=== PATIENT | female | born 1975 | race Caucasian/White ===

== ENCOUNTER 2018-06-30 00:30 | Outpatient (CLI) | payer OTHER, SELFPAY ==
--- NOTE | 2018-06-30 10:47 | DI.RAD_ITS ---
SYMPTOMS/DIAGNOSIS: LOW BACK PAIN CHRONIC, NECK PAIN, M54.2, M54.5 LUMBAR SPINE: AP, lateral and bilateral oblique views. There are five lumbar type vertebral bodies. No spondylolysis or spondylolisthesis is seen. There are a few small endplate osteophytes at the L 3 - 4 and L 4 - 5 disc levels. The vertebral bodies, disc spaces and posterior elements are intact. The bones are normally mineralized. There are mild degenerative changes of the facet joints at L 5 - S 1. IMPRESSION: Mild degenerative changes in the lumbar spine. SACRUM AND COCCYX: Two views. No bone or joint abnormality is identified. IMPRESSION: Negative examination. THORACIC SPINE: Frontal and lateral views. There is normal alignment of the thoracic spine. There is mild disc space narrowing and small osteophytes seen at multiple mid thoracic spine levels. No acute fractures of subluxations are seen. The paraspinal lines are intact. IMPRESSION: Mild degenerative changes seen in the mid thoracic spine. CERVICAL SPINE: Odontoid, AP, lateral and bilateral oblique views. The odontoid is intact. The lateral masses appear well aligned. There is straightening of the normal cervical lordosis. This may be due to muscle spasm or patient positioning. The vertebral bodies, disc spaces and posterior elements are all well maintained. No neural foraminal encroachment is seen. No acute fracture or subluxation is present. The prevertebral soft tissues are unremarkable. IMPRESSION: Unremarkable cervical spine examination.
== END 2018-06-30 00:50 ==
PROVIDERS: PCP Nurse Practitioner Family; Visit Provider Nurse Practitioner Family
DX: M54.5 Low back pain (principal); M54.2 Cervicalgia; M54.6 Pain in thoracic spine; M47.817 Spondylosis without myelopathy or radiculopathy, lumbosacral region; M47.814 Spondylosis without myelopathy or radiculopathy, thoracic region; M53.3 Sacrococcygeal disorders, not elsewhere classified
CPT/HCPCS: 72050; 72072; 72110; 72220

== ENCOUNTER 2018-07-13 00:22 | Outpatient (CLI) | payer OTHER, SELFPAY ==
--- NOTE | 2018-07-13 13:09 | DI.US_ITS ---
SYMPTOMS/DIAGNOSIS: LOW BACK PAIN, MENORRHAGIA, N92.0 PELVIC ULTRASOUND: Transabdominal and transvaginal exams were performed. Both the transabdominal and transvaginal exams are limited by patient body habitus. The uterus and ovaries were not well seen transvaginally. The uterus measures 9.8 x 3.5 x 4.9 cm. There is a 1.7 cm anterior myometrial fibroid. The endometrial stripe appears normal at 4 mm in thickness. The ovaries are normal in size. No cyst or mass is identified. There is no evidence of free fluid or hydronephrosis. IMPRESSION: Small uterine fibroid. Limited exam due to patient body habitus.
== END 2018-07-13 00:42 ==
PROVIDERS: PCP Nurse Practitioner Family; Visit Provider Nurse Practitioner Family
DX: N92.0 Excessive and frequent menstruation with regular cycle (principal); M54.5 Low back pain; D25.9 Leiomyoma of uterus, unspecified
CPT/HCPCS: 76830; 76856

== ENCOUNTER 2019-06-03 10:36 | Outpatient (REF) | payer OTHER, SELFPAY ==
[2019-06-03 13:12] LABS: Absolute Basophil Count 0.02 k/cumm (0.0-0.2); Absolute Eosinophil Count 0.11 k/cumm (0.0-0.7); Absolute Lymphocyte Count 1.89 k/cumm (1.2-3.4); Absolute Neutrophil Count 5.13 k/cumm (1.2-6.7); Basophils % 0.3; Eosinophils % 1.4; HGB 13.7 g/dL (12.0-15.5); Immature Grans % 1.3 %; Lymphocytes % 24.4; Mean Corp. HGB Concentration 34.3 g/dL (32.0-36.0); Mean Corpuscular Hemoglobin 31.8 pg (27.0-33.0); Mean Corpuscular Volume 92.8 fL (80-95); Mean Platelet Volume 11.2 fL (8.0-11.0); Monocytes % 6.5; Neutrophils % 66.1; Platelet Count 211 x1000/uL (130-400); RBC 4.31 m/cumm (4.00-5.20); RBC Distribution Width 13.4 % (11.7-14.6); White Blood Cell Count 7.75 k/cumm (4.4-10.8)
[2019-06-03 13:30] LABS: ALT 32 U/L (14-59); AST 21 U/L (15-37); Albumin 3.8 g/dL (3.4-5.0); Alkaline Phosphatase 83 U/L (46-116); Anion Gap 6.8 mmol/L (3-11); BUN 8 mg/dL (7-18); Bilirubin, Total 0.5 mg/dL (0.2-1.0); CO2 29.2 mmol/L (21.0-32.0); CREATININE 0.94 mg/dL (0.55-1.02); Calcium 8.5 mg/dL (8.5-10.1); Chloride 103 mmol/L (98-107); Glucose 86 mg/dL (74-106); Potassium 4.3 mmol/L (3.5-5.1); Sodium 139 mmol/L (136-145); TSH (W/Ref FT4) 7.14 uIU/mL (0.36-3.74); Total Protein 6.8 g/dL (6.4-8.2)
[2019-06-03 13:42] LABS: Calculated LDL 169 mg/dL (<100); Cholesterol 253 mg/dL (<200); HDL Cholesterol 41 mg/dL (40-60); Triglyceride 218 mg/dL (<150)
[2019-06-03 14:00] LABS: FREE T4 0.83 ng/dL (0.76-1.46)
[2019-06-03 14:04] LABS: COMMENT (LAB VIEW ONLY) 205.35 mg/dL; PROTEIN 15.9 mg/dL; Prot/Crea Ur Ratio 0.07
[2019-06-03 14:06] LABS: COMMENT (LAB VIEW ONLY) 207.23 mg/dL; Microalb ug/mg Crea 22.5 ug/mg Cr
== END 2019-06-03 10:56 ==
LOC: NCHCN 10:36
PROVIDERS: PCP Nurse Practitioner Family; Visit Provider Nurse Practitioner Family
DX: Z00.00 Encounter for general adult medical examination without abnormal findings (principal); Z13.220 Encounter for screening for lipoid disorders; Z13.228 Encounter for screening for other metabolic disorders; R53.83 Other fatigue; I10 Essential (primary) hypertension
CPT/HCPCS: 80053; 80061; 82043; 82565; 82570; 84156; 84439; 84443; 85025

== ENCOUNTER 2019-07-13 15:48 | Outpatient (CLI) | payer OTHER, SELFPAY ==
[2019-07-15 12:16] LABS: COVID-19 RT-PCR Result Not Detected
== END 2019-07-13 16:08 ==
PROVIDERS: PCP Nurse Practitioner Family; Visit Provider Nurse Practitioner Family
DX: Z20.828 Contact with and (suspected) exposure to other viral communicable diseases (principal)
CPT/HCPCS: U0003

== ENCOUNTER 2020-03-12 19:09 | Outpatient (REF) | payer OTHER, SELFPAY ==
[2020-03-12 19:26] LABS: Anion Gap 7.6 mmol/L (3-11); BUN 11 mg/dL (7-18); CO2 27.4 mmol/L (21.0-32.0); CREATININE 0.93 mg/dL (0.55-1.02); Calcium 8.9 mg/dL (8.5-10.1); Chloride 102 mmol/L (98-107); Glucose 87 mg/dL (74-106); NT-proBNP 32 pg/mL (<300); Potassium 3.8 mmol/L (3.5-5.1); Sodium 137 mmol/L (136-145); TSH (W/Ref FT4) 3.21 uIU/mL (0.36-3.74)
[2020-03-13 16:59] LABS: T3, Total 119 ng/dL (97-169)
[2020-03-13 18:32] LABS: Thyroglobulin Antibody <15 U/mL (<=60); Thyroperoxidase Antibody 38 U/mL (<=60)
== END 2020-03-12 19:29 ==
LOC: NCHCN 19:09
PROVIDERS: PCP Nurse Practitioner Family; Visit Provider Family Medicine
DX: I10 Essential (primary) hypertension (principal); E03.9 Hypothyroidism, unspecified; R60.0 Localized edema
CPT/HCPCS: 80048; 83880; 84443; 84480; 86376; 86800

== ENCOUNTER 2020-10-30 13:51 | Outpatient (REF) | payer OTHER, SELFPAY ==
[2020-10-30 14:14] LABS: Anion Gap 6.8 mmol/L (3-11); BUN 9 mg/dL (7-18); CO2 29.2 mmol/L (21.0-32.0); Calcium 8.8 mg/dL (8.5-10.1); Chloride 105 mmol/L (98-107); Glucose 81 mg/dL (74-106); Potassium 4.6 mmol/L (3.5-5.1); Sodium 141 mmol/L (136-145)
== END 2020-10-30 13:52 | disposition home or self-care (01) ==
LOC: NCHCN 13:51
PROVIDERS: PCP Nurse Practitioner Family; Visit Provider Nurse Practitioner Family
DX: I10 Essential (primary) hypertension (principal)
CPT/HCPCS: 80048

== ENCOUNTER 2021-03-05 15:31 | Outpatient (REF) | payer OTHER, SELFPAY ==
--- NOTE | 2021-03-05 13:45 | PAPFT_PTH ---
PATIENT: Orly Valencia LOC: [facility]#:[id number] AGE/SX: 45/F ROOM: RE03/05/[address]: Lurdes Luna : 1975 BED: DIS: 03/05/2021 SPEC #: [id number] RECD: 03/06/21 13:14 STATUS: BREEZY REQ #: [id number] RUSLAN: 03/05/21 13:[address]: Lurdes Luna DEPT: [facility] Cytology RECD BY: Tessy Braga ENTERED: 03/06/21 13:15 SP TYPE: PAPFT OTHR DR: Waqar Riley Tissues: 1 - CX/ENDOCX FOR PAP SMEARS Procedures: PAP THIN PREP/UVM Screening HPV DNA PROBE Comments: [id number]
== END 2021-03-05 15:32 | disposition home or self-care (01) ==
LOC: NCHCN 15:31
PROVIDERS: PCP Nurse Practitioner Family; Visit Provider Nurse Practitioner Family
DX: Z12.4 Encounter for screening for malignant neoplasm of cervix (principal); Z11.51 Encounter for screening for human papillomavirus (HPV)
CPT/HCPCS: 88142; 87624

== ENCOUNTER 2021-04-02 01:43 | Outpatient (CLI) | payer OTHER, SELFPAY ==
[2021-04-02 12:31] VITALS: BP 139/97; PULSE 104; RESP 18; TEMP 36.4; O2SAT 100
[2021-04-02 12:58] VITALS: BP 144/98; PULSE 103; RESP 18; TEMP 36.5; O2SAT 100
[2021-04-02 13:23] VITALS: BP 132/89; PULSE 103; RESP 18; TEMP 36.1; O2SAT 99
[2021-04-02 14:21] VITALS: BP 132/89; PULSE 103; RESP 18; TEMP 36.1; O2SAT 99
== END 2021-04-02 01:44 | disposition home or self-care (01) ==
PROVIDERS: PCP Nurse Practitioner Family; Visit Provider Family Medicine
DX: U07.1 COVID-19 (principal)
CPT/HCPCS: 96365; Q0047

== ENCOUNTER 2021-05-27 19:14 | Outpatient (REF) | payer OTHER, SELFPAY ==
[2021-05-27 15:27] LABS: HCT 40.8 % (36.0-46.0); HGB 13.7 g/dL (11.2-15.7); MCH 32.1 pg (27.0-33.0); MCHC 33.6 % (32.0-36.0); MCV 95.6 fL (80-95); MPV 10.8 fL (8.0-11.0); Platelet Count 236 10^3/uL (130-400); RBC 4.27 10^6/uL (3.93-5.22); RDW 13.4 % (11.7-14.6); RDW-SD 46.8 fL; WBC 8.25 10^3/uL (4.4-10.8)
[2021-05-27 15:50] LABS: HCG Quant, Pregnancy < 1 mIU/mL (1-3)
== END 2021-05-27 19:15 | disposition home or self-care (01) ==
LOC: NCHCN 19:14
PROVIDERS: PCP Nurse Practitioner Family; Visit Provider Family Medicine
DX: N93.9 Abnormal uterine and vaginal bleeding, unspecified (principal)
CPT/HCPCS: 85027; 84702

== ENCOUNTER 2021-06-25 16:59 | Outpatient (REF) | payer OTHER, SELFPAY ==
--- NOTE | 2021-06-25 15:40 | ENDOMET_PTH ---
PATIENT: Orly Valencia LOC: [facility] U#:[id number] AGE/SX: 45/F ROOM: RE06/25/[address]: Sherry Villasenor MD : 1975 BED: DIS: 06/25/2021 SPEC #: [id number] RECD: 06/25/21 17:56 STATUS: BREEZY REQ #: [id number] RUSLAN: 06/25/21 15:[address]: Sherry Villasenor DEPT: Surgical Specimen RECD BY: Tessy Braga ENTERED: 06/25/21 17:57 SP TYPE: Endomet OTHR DR: Waqar Riley Tissues: 1 - ENDOMETRIUM BX/KATY Procedures: GROSS AND MICRO LEVEL 4 Comments: [id number]
== END 2021-06-25 17:00 | disposition home or self-care (01) ==
LOC: LBN 16:59
PROVIDERS: PCP Nurse Practitioner Family; Visit Provider Obstetrics & Gynecology
DX: N93.8 Other specified abnormal uterine and vaginal bleeding (principal); N85.01 Benign endometrial hyperplasia; N85.8 Other specified noninflammatory disorders of uterus
CPT/HCPCS: 88305

== ENCOUNTER 2021-09-24 13:19 | Outpatient (REF) | payer OTHER, SELFPAY ==
[2021-09-24 15:54] LABS: Abs Immature Grans 0.11 10^3/uL (0.0-0.06); Absolute Basophil Count 0.03 10^3/uL (0.0-0.2); Absolute Lymphocyte Count 1.61 10^3/uL (1.2-3.4); Absolute Monocyte Count 0.54 10^3/uL (0.1-0.8); Absolute Neutrophil Count 6.48 10^3/uL (1.2-6.7); Basophils % 0.3; Eosinophils % 1.1; HCT 38.4 % (36.0-46.0); HGB 13.5 g/dL (11.2-15.7); Immature Grans % 1.2; Lymphocytes % 18.2; MCH 33.5 pg (27.0-33.0); MCHC 35.2 % (32.0-36.0); MCV 95 fL (80-95); MPV 10.7 fL (8.0-11.0); Monocytes % 6.1; Neutrophils % 73.1; Platelet Count 216 10^3/uL (130-400); RBC 4.03 10^6/uL (3.93-5.22); RDW 13.3 % (11.7-14.6); RDW-SD 46.5 fL; WBC 8.87 10^3/uL (4.4-10.8)
[2021-09-24 15:57] LABS: ESR 9 mm/hr (0-20)
[2021-09-24 16:06] LABS: ALT 28 U/L (14-59); AST 17 U/L (15-37); Alkaline Phosphatase 81 U/L (46-116); Anion Gap 8.7 mmol/L (3-11); BUN 8 mg/dL (7-18); Bilirubin, Total 0.7 mg/dL (0.2-1.0); C-Reactive Protein 1.06 mg/dL (0.0-0.3); CO2 27.3 mmol/L (21.0-32.0); Calcium 9.1 mg/dL (8.5-10.1); Chloride 102 mmol/L (98-107); Glucose 87 mg/dL (74-106); Sodium 138 mmol/L (136-145); Total Protein 6.7 g/dL (6.4-8.2)
== END 2021-09-24 13:20 | disposition home or self-care (01) ==
LOC: LBN 13:19
PROVIDERS: PCP Nurse Practitioner Family; Visit Provider Nurse Practitioner Family
DX: R10.32 Left lower quadrant pain (principal); R79.82 Elevated C-reactive protein (CRP); R82.998 Other abnormal findings in urine
CPT/HCPCS: 80053; 85652; 85025; 86140; 87086

== ENCOUNTER 2021-09-26 15:43 | Outpatient (REF) | payer OTHER, SELFPAY ==
[2021-09-26 19:33] LABS: Bilirubin Negative (Negative); Blood Large (Negative); Clarity Turbid (Clear); Glucose Negative (Negative); Ketones Negative (Negative); Leukocyte Esterase Trace (Negative); Nitrite Negative (Negative); Specific Gravity 1.025 (1.005-1.025); Urobilinogen 0.2 EU/dL (Up TO 0.2); pH 5.5 (5-8)
[2021-09-26 19:43] LABS: RBC >50 HPF (0-2)
[2021-09-26 19:44] LABS: C & S Indicated? Yes
== END 2021-09-26 15:44 | disposition home or self-care (01) ==
LOC: NCHCN 15:43
PROVIDERS: PCP Nurse Practitioner Family; Visit Provider Nurse Practitioner Family
DX: R10.32 Left lower quadrant pain (principal)
CPT/HCPCS: 81003; 81015; 87086

== ENCOUNTER 2021-11-26 19:35 | Outpatient (REF) | payer OTHER, SELFPAY ==
[2021-11-26 20:17] LABS: Calculated LDL 157 mg/dL (<100); Cholesterol 249 mg/dL (<200); HDL Cholesterol 44 mg/dL (40-60); Magnesium 1.7 mg/dL (1.8-2.4); TSH (W/Ref FT4) 2.67 uIU/mL (0.36-3.74); Triglyceride 240 mg/dL (<150); Vitamin B12 540 pg/mL (193-986)
[2021-11-28 05:46] LABS: Vitamin D 25 Total 30.6 ng/mL (30-100)
== END 2021-11-26 19:36 | disposition home or self-care (01) ==
LOC: NCHCN 19:35
PROVIDERS: PCP Nurse Practitioner Family; Visit Provider Nurse Practitioner Family
DX: I10 Essential (primary) hypertension (principal); E03.9 Hypothyroidism, unspecified; E66.01 Morbid (severe) obesity due to excess calories; E78.5 Hyperlipidemia, unspecified; E55.9 Vitamin D deficiency, unspecified; K21.9 Gastro-esophageal reflux disease without esophagitis; M54.2 Cervicalgia
CPT/HCPCS: 80061; 82306; 82607; 83735; 84443

== ENCOUNTER 2022-06-23 11:50 | Outpatient (REF) | payer OTHER, SELFPAY ==
[2022-06-23 15:23] LABS: Bilirubin Negative (Negative); Blood Moderate (Negative); Clarity Cloudy (Clear); Glucose Negative (Negative); Ketones Negative (Negative); Leukocyte Esterase Large (Negative); Nitrite Positive (Negative); Specific Gravity 1.015 (1.005-1.025); Urobilinogen 0.2 mg/dL (Up to 0.2); pH 6.5 (5-8)
[2022-06-23 15:30] LABS: Bacteria Many HPF (Negative); C & S Indicated? No/Sq. Contamination; Casts Negative LPF (Negative); Crystals Negative HPF (Negative); Epithelial Cells Many HPF (Negative); Mucus Negative (Negative); WBC >50 HPF (0-5)
== END 2022-06-23 11:51 | disposition home or self-care (01) ==
LOC: NCHCN 11:50
PROVIDERS: Visit Provider Family Medicine
DX: N39.0 Urinary tract infection, site not specified (principal)
CPT/HCPCS: 81003; 81015

== ENCOUNTER 2022-07-03 16:29 | Outpatient (REF) | payer OTHER, SELFPAY ==
[2022-07-03 15:39] LABS: Bilirubin Negative (Negative); Glucose Negative (Negative); Ketones Negative (Negative); Leukocyte Esterase Negative (Negative); Nitrite Negative (Negative); pH 6.5 (5-8)
[2022-07-03 15:58] LABS: Clarity Clear (Clear)
[2022-07-03 15:59] LABS: Urobilinogen 0.2 mg/dL (Up to 0.2)
[2022-07-03 16:00] LABS: Blood Small (Negative)
[2022-07-03 16:02] LABS: Epithelial Cells Many HPF (Negative)
[2022-07-03 16:03] LABS: Bacteria Few HPF (Negative); C & S Indicated? No/Sq. Contamination; Casts Negative LPF (Negative); Crystals Negative HPF (Negative); Mucus Negative (Negative)
== END 2022-07-03 16:30 | disposition home or self-care (01) ==
LOC: NCHCN 16:29
PROVIDERS: Visit Provider Nurse Practitioner Family
DX: R35.0 Frequency of micturition (principal)
CPT/HCPCS: 81003; 81015

== ENCOUNTER 2022-07-14 12:58 | Outpatient (REF) | payer OTHER, SELFPAY ==
[2022-07-14 14:42] LABS: HCT 38.6 % (36.0-46.0); HGB 13.6 g/dL (11.2-15.7); MCH 33.8 pg (27.0-33.0); MCHC 35.2 % (32.0-36.0); MCV 96 fL (80-95); MPV 10.4 fL (8.0-11.0); Platelet Count 231 10^3/uL (130-400); RBC 4.02 10^6/uL (3.93-5.22); RDW 12.7 % (11.7-14.6); WBC 8.26 10^3/uL (4.4-10.8)
[2022-07-14 15:06] LABS: Anion Gap 3.4 mmol/L (3-11); BUN 8 mg/dL (7-18); CO2 30.6 mmol/L (21.0-32.0); Chloride 103 mmol/L (98-107); Glucose 90 mg/dL (74-106); Sodium 137 mmol/L (136-145)
== END 2022-07-14 12:59 | disposition home or self-care (01) ==
LOC: NCHCN 12:58
PROVIDERS: PCP Family Medicine; Visit Provider Family Medicine
DX: I10 Essential (primary) hypertension (principal)
CPT/HCPCS: 80048; 85027

== ENCOUNTER 2023-12-08 14:54 | Outpatient (REF) | payer OTHER, SELFPAY ==
[2023-12-08 16:14] LABS: Abs Immature Grans 0.06 10^3/uL (0.0-0.06); Absolute Basophil Count 0.03 10^3/uL (0.0-0.2); Absolute Eosinophil Count 0.11 10^3/uL (0.0-0.7); Absolute Lymphocyte Count 1.64 10^3/uL (1.2-3.4); Absolute Monocyte Count 0.42 10^3/uL (0.1-0.8); Absolute Neutrophil Count 5.03 10^3/uL (1.2-6.7); Basophils % 0.4 %; Eosinophils % 1.5 %; HCT 39.9 % (36.0-46.0); HGB 13.9 g/dL (11.2-15.7); Immature Grans % 0.8 %; Lymphocytes % 22.5 %; MCH 32.3 pg (27.0-33.0); MCHC 34.8 % (32.0-36.0); MCV 93 fL (80-95); MPV 11.1 fL (8.0-11.0); Monocytes % 5.8 %; Platelet Count 216 10^3/uL (130-400); RDW 12.7 % (11.7-14.6); RDW-SD 42.9 fL; WBC 7.29 10^3/uL (4.4-10.8)
[2023-12-08 16:54] LABS: ALT 43 U/L (14-59); AST 25 U/L (15-37); Albumin 3.9 g/dL (3.4-5.0); Alkaline Phosphatase 92 U/L (46-116); Anion Gap 8.2 mmol/L (3-11); BUN 16 mg/dL (7-18); Bilirubin, Total 0.92 mg/dL (0.2-1.0); CO2 29.8 mmol/L (21.0-32.0); CREATININE 0.9 mg/dL (0.55-1.02); Calcium 8.9 mg/dL (8.5-10.1); Calculated LDL 140 mg/dL (<100); Chloride 102 mmol/L (98-107); Cholesterol 240 mg/dL (<200); Estimated GFR 79.35 (mL/min/1.73m2); Glucose 95 mg/dL (74-106); HDL Cholesterol 43 mg/dL (40-60); Potassium 4.2 mmol/L (3.5-5.1); Sodium 140 mmol/L (136-145); TSH (W/Ref FT4) 0.68 uIU/mL (0.36-3.74); Triglyceride 289 mg/dL (<150)
[2023-12-08 17:27] LABS: Hemoglobin A1C 5.3 % (<5.7)
== END 2023-12-08 14:55 | disposition home or self-care (01) ==
LOC: NCHCN 14:54
PROVIDERS: PCP Nurse Practitioner Family; Visit Provider Nurse Practitioner Family
DX: R53.83 Other fatigue (principal); E66.9 Obesity, unspecified; Z13.6 Encounter for screening for cardiovascular disorders; Z13.1 Encounter for screening for diabetes mellitus; I10 Essential (primary) hypertension
CPT/HCPCS: 80053; 80061; 83036; 84443; 85025

== ENCOUNTER 2024-10-20 15:24 | Emergency (ER) | payer OTHER, SELFPAY ==
[2024-10-20] VITALS (7 sets, daily range): BP systolic 139–142; BP diastolic 89–96; PULSE 84–95; RESP 18; TEMP 36.6–36.8; O2SAT 98–99
--- NOTE | 2024-10-20 15:45 | RT.EKG_ITS ---
APPROVED REPORT Exam: Resting ECG Reason for Exam: Chest pressure Patient Location: E HR:89 bpm ECG Measurements Heart Rate 89 AXIS OR 136 P 46 QRSd 85 QRS 12 QT 352 T 29 QTc 428 Conclusion Sinus rhythm...normal P axis, V-rate 60- 99 Sinus rhythm normal axis normal intervals no acute ischemic changes
--- NOTE | 2024-10-20 16:15 | DI.RAD_ITS ---
Exam(s) XR CHEST 2V PA LATERAL EXAM: XR CHEST 2V PA LATERAL CLINICAL HISTORY: chest pain TECHNIQUE: 2D digital imaging was performed. Two views. COMPARISON: No exams were available for comparison FINDINGS: HEART: Normal size. Aorta: Not dilated. PULMONARY VASCULATURE: Normal. MEDIASTINUM: Unremarkable. LUNGS: Clear. PLEURAL SPACE: No pleural effusion or pneumothorax. BONE:Unremarkable for age. SOFT TISSUES: Unremarkable. IMPRESSION: No acute abnormality. DATA REPOSITORY: RADIATION DOSE DELIVERED:
[2024-10-20 16:54] LABS: Abs Immature Grans 0.03 10^3/uL (0.0-0.06); HCT 41.3 % (36.0-46.0); HGB 14.5 g/dL (11.2-15.7); Immature Grans % 0.4 %; MCH 32.4 pg (27.0-33.0); MCHC 35.1 % (32.0-36.0); MCV 92 fL (80-95); MPV 10.3 fL (8.0-11.0); Platelet Count 265 10^3/uL (130-400); RBC 4.47 10^6/uL (3.93-5.22); RDW 12.6 % (11.7-14.6); RDW-SD 42.6 fL; WBC 7.63 10^3/uL (4.4-10.8)
[2024-10-20 16:56] LABS: Glucose Negative (Negative)
[2024-10-20 17:07] LABS: WBC 0-2 HPF (0-5)
[2024-10-20 17:19] LABS: ALT 39 U/L (14-59); AST 24 U/L (15-37); Albumin 4.5 g/dL (3.4-5.0); Alkaline Phosphatase 92 U/L (46-116); Anion Gap 6.0 mmol/L (3-11); BUN 11 mg/dL (7-18); Bilirubin, Total 1.0 mg/dL (0.2-1.0); CO2 32.0 mmol/L (21.0-32.0); Calcium 9.8 mg/dL (8.5-10.1); Chloride 102 mmol/L (98-107); Estimated GFR 79.35 (mL/min/1.73m2); Glucose 109 mg/dL (74-106); Lipase 42 U/L (<78); NT-proBNP 27 pg/mL (<300); Potassium 3.9 mmol/L (3.5-5.1); Sodium 140 mmol/L (136-145); Total Protein 7.9 g/dL (6.4-8.2); Troponin I 4 ng/L (<or=51)
[2024-10-20 18:08] LABS: Troponin I 4 ng/L (<or=51)
--- NOTE | 2024-10-20 19:53 | W.ED.GENAD ---
Discharge Plan Disposition Patient Disposition: Home Condition: Stable Discharge Details Clinical Impression: Chest pain Primary Care Provider: Ainsley Delgado ED Provider: Tessy Pulliam Home Meds and New Rx's Prescriptions: New magnesium 250 mg tablet 250 mg PO DAILY Qty: 10 0RF furosemide [Lasix] 20 mg tablet 10 mg PO Q OTHER DAY Qty: 3 0RF Continued multivitamin [Daily Multi-Vitamin] tablet 1 tab PO DAILY pantoprazole [Protonix] 40 mg tablet,delayed release (DR/EC) 40 mg PO DAILY albuterol sulfate 2.5 mg /3 mL (0.083 %) solution for nebulization 2.5 mg inhalation QID PRN (Reason: shortness of breath or wheezing) Qty: 90 0RF cholecalciferol (vitamin D3) 50 mcg (2,000 unit) capsule 50 mcg PO DAILY losartan 25 mg tablet 25 mg PO DAILY fluoxetine 10 mg capsule 10 mg PO DAILY montelukast 10 mg tablet 10 mg PO DAILY Discharge Instructions Instructions: Chest Pain (DC) Additional Instructions: i've placed a referral to see your pcp next week take the magnesium as prescribed you may take the lasix for 3 days if the swelling is bothering you elevate your legs when you are at rest please return with worsening pain, shortness of breath, or should any new concerns arise Referrals: Benji Waite [ NON-[facility] STAFF PHYSICIAN, Medicine] Discharge Data Discharge Date/Time-TO BE ENTERED AT DEPARTURE: 10/20/24 19:18 HPI General Date/Time Provider Initiated Documentation: 10/20/24 16:14. HPI Narrative: 48-year-old female with hypertension, GERD, depression, and anxiety presents with intermittent chest pressure and shoulder pain for several weeks. Symptoms worsen with stress. No recent surgeries, long drives, tobacco use, risk, hyperlipidemia, nausea, or recent upper respiratory symptoms. Bilateral lower extremity swelling for several weeks, unchanged with exertion. Related Data Home Medications ?Medication ?Instructions ?Recorded ?Confirmed multivitamin (Daily Multi-Vitamin 1 tab PO DAILY 07/27/18 10/20/24 tablet) cholecalciferol (vitamin D3) 50 50 mcg PO DAILY 06/10/21 10/20/24 mcg (2,000 unit) capsule fluoxetine 10 mg capsule 10 mg PO DAILY 06/10/21 10/20/24 losartan 25 mg tablet 25 mg PO DAILY 06/10/21 10/20/24 montelukast 10 mg tablet 10 mg PO DAILY 06/10/21 10/20/24 pantoprazole 40 mg tablet,delayed 40 mg PO DAILY 01/15/23 10/20/24 release (Protonix) albuterol sulfate 2.5 mg/3 mL 2.5 mg (3 mL) inhalation QID PRN 06/20/23 10/20/24 (0.083 %) solution for nebulization shortness of breath or wheezing #90 mL furosemide 20 mg tablet (Lasix) 10 mg (1/2 x 20 mg) PO Q OTHER DAY 10/20/24 #3 tabs magnesium 250 mg tablet 250 mg PO DAILY #10 tabs 10/20/24 Previous Rx's ?Medication ?Instructions ?Recorded albuterol sulfate 2.5 mg/3 mL 2.5 mg (3 mL) inhalation QID PRN 06/20/23 (0.083 %) solution for nebulization shortness of breath or wheezing #90 mL furosemide 20 mg tablet (Lasix) 10 mg (1/2 x 20 mg) PO Q OTHER DAY 10/20/24 #3 tabs magnesium 250 mg tablet 250 mg PO DAILY #10 tabs 10/20/24 Allergies Allergy/AdvReac Type Severity Reaction Status Date / Time Penicillins AdvReac Intermediate Rash Verified 10/20/24 17:08 General Stated Complaint: Chest Pain PASCUAL: 3 Exam Narrative Exam Narrative: General Appearance: Alert and oriented, in no acute distress. Vital signs: Within normal limits. HEENT: Within normal limits. Respiratory: Lungs clear to auscultation. Cardiovascular: Regular cardiac rhythm. Gastrointestinal: No abdominal tenderness. Extremities: Mild ankle swelling, no tenderness to calves bilaterally, distal pulses intact, no pitting edema. Skin: Warm and dry, no rash. Neurological: Normal. Course Vital Signs Vital signs: Vital Signs Temperature 36.8 C 10/20/24 15:47 Pulse 94 H 10/20/24 15:47 Respiratory Rate 18 10/20/24 15:47 Pulse Oximetry 98 10/20/24 15:47 Temperature 36.6 C 10/20/24 19:18 Temperature Source Oral 10/20/24 15:47 Pulse 84 10/20/24 19:18 Pulse 89 10/20/24 18:10 Respiratory Rate 18 10/20/24 19:18 Respiratory Effort Normal 10/20/24 17:11 Blood Pressure 142/96 H 10/20/24 19:18 Blood Pressure Mean 105 10/20/24 17:06 Pulse Oximetry 98 10/20/24 19:18 Oxygen Delivery Method Room Air 10/20/24 17:06 Oxygen Flow Rate 0 10/20/24 17:06 Pain Level 5 10/20/24 15:47 Lab/Test Results Lab/Test Results: Laboratory Tests Range/Units 10/20/24 10/20/24 10/20/24 16:30 16:40 17:40 WBC (4.4-10.8) 10^3/uL 7.63 RBC (3.93-5.22) 10^6/uL 4.47 Hgb (11.2-15.7) g/dL 14.5 Hct (36.0-46.0) % 41.3 MCV (80-95) fL 92 MCH (27.0-33.0) pg 32.4 MCHC (32.0-36.0) % 35.1 RDW (11.7-14.6) % 12.6 Plt Count (130-400) 10^3/uL 265 MPV (8.0-11.0) fL 10.3 Immature Gran % % 0.4 Neutrophils % % 68.8 Lymphocytes % % 22.7 Monocytes % % 5.8 Eosinophils % % 1.8 Basophils % % 0.5 Nucleated RBC % (0.0-0.3) % 0.0 Absolute Neutrophils (1.2-6.7) 10^3/uL 5.25 Absolute Lymphocytes (1.2-3.4) 10^3/uL 1.73 Absolute Monocytes (0.1-0.8) 10^3/uL 0.44 Absolute Eosinophils (0.0-0.7) 10^3/uL 0.14 Absolute Basophils (0.0-0.2) 10^3/uL 0.04 Sodium (136-145) mmol/L 140 Potassium (3.5-5.1) mmol/L 3.9 Chloride (98-107) mmol/L 102 Carbon Dioxide (21.0-32.0) mmol/L 32.0 Anion Gap (3-11) mmol/L 6.0 BUN (7-18) mg/dL 11 Creatinine (0.55-1.02) mg/dL 0.9 Est GFR (CKD-EPI 2020) (mL/min/1.73m2) 79.35 Glucose (74-106) mg/dL 109 H Calcium (8.5-10.1) mg/dL 9.8 Total Bilirubin (0.2-1.0) mg/dL 1.0 AST (15-37) U/L 24 ALT (14-59) U/L 39 Alkaline Phosphatase (46-116) U/L 92 Troponin I (<or=51) ng/L 4 4 NT-Pro-B Natriuret Pep (<300) pg/mL 27 Total Protein (6.4-8.2) g/dL 7.9 Albumin (3.4-5.0) g/dL 4.5 Lipase (<78) U/L 42 Urine Color (Yellow) Yellow Urine Clarity (Clear) Clear Urine pH (5-8) 7.0 Ur Specific [place] (1.005-1.025) 1.015 Urine Protein (Neg-Trace) mg/dL Negative Urine Ketones (Negative) mg/dL Negative Urine Blood (Negative) Trace-intact H Urine Nitrite (Negative) Negative Urine Bilirubin (Negative) Negative Urine Urobilinogen (Up to 0.2) mg/dL 0.2 Ur Leukocyte Esterase (Negative) Negative Urine RBC (0-2) HPF 3-5 H Urine WBC (0-5) HPF 0-2 Ur Epithelial Cells (Negative) HPF Many Urine Crystals (Negative) HPF Negative Urine Bacteria (Negative) HPF Moderate Urine Casts (Negative) LPF Negative Urine Mucus (Negative) Negative Ur Culture Indicated? No/Sq. Contamination Urine Glucose (Negative) mg/dL Negative Range/Units 10/20/24 19:15 WBC (4.4-10.8) 10^3/uL RBC (3.93-5.22) 10^6/uL Hgb (11.2-15.7) g/dL Hct (36.0-46.0) % MCV (80-95) fL MCH (27.0-33.0) pg MCHC (32.0-36.0) % RDW (11.7-14.6) % Plt Count (130-400) 10^3/uL MPV (8.0-11.0) fL Immature Gran % % Neutrophils % % Lymphocytes % % Monocytes % % Eosinophils % % Basophils % % Nucleated RBC % (0.0-0.3) % Absolute Neutrophils (1.2-6.7) 10^3/uL Absolute Lymphocytes (1.2-3.4) 10^3/uL Absolute Monocytes (0.1-0.8) 10^3/uL Absolute Eosinophils (0.0-0.7) 10^3/uL Absolute Basophils (0.0-0.2) 10^3/uL Sodium (136-145) mmol/L Potassium (3.5-5.1) mmol/L Chloride (98-107) mmol/L Carbon Dioxide (21.0-32.0) mmol/L Anion Gap (3-11) mmol/L BUN (7-18) mg/dL Creatinine (0.55-1.02) mg/dL Est GFR (CKD-EPI 2020) (mL/min/1.73m2) Glucose (74-106) mg/dL Calcium (8.5-10.1) mg/dL Total Bilirubin (0.2-1.0) mg/dL AST (15-37) U/L ALT (14-59) U/L Alkaline Phosphatase (46-116) U/L Troponin I (<or=51) ng/L Cancelled NT-Pro-B Natriuret Pep (<300) pg/mL Total Protein (6.4-8.2) g/dL Albumin (3.4-5.0) g/dL Lipase (<78) U/L Urine Color (Yellow) Urine Clarity (Clear) Urine pH (5-8) Ur Specific [place] (1.005-1.025) Urine Protein (Neg-Trace) mg/dL Urine Ketones (Negative) mg/dL Urine Blood (Negative) Urine Nitrite (Negative) Urine Bilirubin (Negative) Urine Urobilinogen (Up to 0.2) mg/dL Ur Leukocyte Esterase (Negative) Urine RBC (0-2) HPF Urine WBC (0-5) HPF Ur Epithelial Cells (Negative) HPF Urine Crystals (Negative) HPF Urine Bacteria (Negative) HPF Urine Casts (Negative) LPF Urine Mucus (Negative) Ur Culture Indicated? Urine Glucose (Negative) mg/dL Medical Decision Making Results: Two negative troponins. Chest x-ray shows no acute abnormality. Initial Assessment: 48-year-old female with hypertension, GERD, depression, and anxiety presents with intermittent chest pressure and shoulder pain for several weeks, and bilateral lower extremity swelling. Symptoms associated with stress, unchanged with exertion. No recent surgeries, long drives, family history of coagulopathy, tobacco use, risk, hyperlipidemia, nausea, or recent upper respiratory symptoms. Differential Diagnosis: - Cardiac-related chest pain: Family history of coronary artery disease. Negative troponins. Chest x-ray shows no acute abnormality. Outpatient stress test planned. - Peripheral edema: Mild ankle swelling, no tenderness to calves, no pitting edema. Lasix 10 mg prescribed. ED Course: - Chest x-ray: No acute abnormality. - Two negative troponins. - Prescription for Lasix 10 mg. - Magnesium supplement discussed. Final Assessment: Intermittent chest pressure and shoulder pain likely cardiac-related given family history. Bilateral lower extremity swelling treated with Lasix. Diagnostic imaging and lab tests reviewed. Clinical Impression: - Cardiac-related chest pain - Peripheral edema Disposition: - Discharge: Home. Return precautions reviewed and understood. - Follow-Up: Urgent follow-up with primary care physician next week for outpatient stress test. PFSH All Active Problems (Updated 10/20/24 @ 18:52 by KYREE Liu) Chest pain (Acute) Anxiety (Chronic) GERD (gastroesophageal reflux disease) (Chronic) Hiatal hernia (Chronic) Asthma (Chronic) Medical History Pelvic pain Resolved. IUD appropriately placed on sono. Presence of 52 mg levonorgestrel-releasing intrauterine device (IUD) Liletta placed 06/25/21 Abnormal uterine bleeding (AUB) Uterine fibroid 1.7 cm anterior myometrial on US 06/2018 Surgical History Hx of tubal ligation History of section, low transverse Hx of cholecystectomy Family History Father Heart disease Social History Smoking/Tobacco Use Status: Never Smoking risk assessment performed?: Yes Alcohol Intake: never Substance use type: does not use Housing: house Do you feel safe at home: Yes Do you feel safe in your relationship?: Yes History History 2 Para 2 Hx # Term Pregnancies Multiple births Hx # Pregnancies Ectopic pregnancies AB induced Hx Number of Living Children AB spontaneous Past Pregnancies Del. Date GA/Weeks # Preg Succ Route Wgt Sex Labor Lgth Anesthesia Location [facility] [place] 03/23/05 3401.943 g Male
[2024-10-20 20:07] LABS: Lab Add On Test DONE
[2024-10-20 20:21] LABS: Magnesium 2.0 mg/dL (1.8-2.4)
== END 2024-10-20 19:18 | disposition home or self-care (01) ==
PROVIDERS: Emergency Provider Physician Assistant; PCP Nurse Practitioner Family
DX: R07.9 Chest pain, unspecified (principal); I10 Essential (primary) hypertension; E78.5 Hyperlipidemia, unspecified
CPT/HCPCS: 80053; 83690; 93005; 99285; 71046; 81003; 81015; 83735; 83880; 84484; 85025; 93010; 99284

== ENCOUNTER 2024-11-02 15:04 | Outpatient (CLI) | payer OTHER, SELFPAY ==
--- NOTE | 2024-11-02 08:30 | DI.US_ITS ---
APPROVED REPORT EXAM: Comprehensive 2D, Doppler, and color-flow Echocardiogram Patient Location: Out-Patient Neurophysiological Technician: Aishwarya Whitten RDCS (AE) Indications: Edema lower extremity Other Information Study Quality: Adequate Conclusion Normal left ventricular wall thickness and chamber size. Ejection fraction is 55%. Wall motion is normal Normal right ventricular size and function Both atria are normal in size There is no structural or hemodynamically significant valvular disease Wall motion Left Ventricle The left ventricle is normal size. The left ventricular systolic function is normal. The left ventricular ejection fraction is within the normal range. There is normal left ventricular wall thickness. There is normal LV segmental wall motion. There is no ventricular septal defect visualized. LVEF is 55%. Right Ventricle The right ventricle is normal size. The right ventricular systolic function is normal. Atria The left atrium size is normal. The right atrium size is normal. The interatrial septum is intact with no evidence for an atrial septal defect. Aortic Valve The aortic valve is normal in structure. Aortic valve is trileaflet. There is no aortic valvular stenosis. No aortic regurgitation is present. Mitral Valve The mitral valve is normal in structure. No evidence of mitral valve stenosis. Trace mitral regurgitation. Tricuspid Valve The tricuspid valve is normal in structure. Trace tricuspid regurgitation. Unable to assess PA pressure. Pulmonic Valve The pulmonary valve is normal in structure. There is no pulmonic valvular stenosis. There is no pulmonic valvular regurgitation. Great Vessels The aortic root is normal in size. The ascending aorta is normal in size. Aortic arch is normal in caliber. IVC is normal in size and collapses >50% with inspiration. Pericardium There is no pericardial effusion. 2D Dimensions IVSD d PLAX 0.85 cm F: 0.6-1.0 Ao Root d 2.53 cm F: 2.7 - 3.3 LVPW d PLAX 0.89 cm F: 0.6 - 1.0 Ao Asc Diam d 2.53 cm F: 2.3 - 3.1 LVID d PLAX 4.22 cm F: 3.8 - 5.2 LVDs 3.02 cm F: 2.2 - 3.5 LV EF Teichholz 55.3 % FS 28.50 % LV EDV (Teich) 79.3 mL LV ESV (Teich) 35.4 mL M-Mode TAPSE 2.07 cm (M/F) >1.7 Auto EF LV EDV A4C 86.5 mL LV EDV A2C 71.4 mL LV EDV BP 81.4 mL LV ESV A4C 40.1 mL LV ESV A2C 32.6 mL LV ESV BP 36.8 mL LVEF(%) A4C 53.6 % LVEF(%) A2C 54.4 % LVEF(%) BP 54.7 % LV SV A4C 46.4 ml LV SV A2C 38.8 ml LV SV BP 44.6 ml LV CO A4C 3.8 L/min LV CO A2C 3.4 L/min LV CO BP 3.6 L/min HR A4C 82.20 BPM HR A2C 88.24 BPM LV EDV Index (BP) LA Volume LA Length A4C 4.3 cm LA Length A2C 4.7 cm LA Area A4C s 10.34 cm2 LA Area A2C s 11.97 cm2 LA Vol A4C A-L 21.16 mL LA Vol A2C A-L 26.12 mL LA Vol Biplane A-L 24.5 mL LA Vol/BSA A4C A-L LA Vol/BSA A2C A-L LA Vol/BSA BP A-L 12.4 mL/m2 LA Vol A4C MOD 18.5 mL LA Vol A2C MOD 24.7 mL LA Vol BP MOD 22.1 mL LV Diastology MV E' medial 0.097 (>0.07 m/s) MV E Vmax 0.88 (0.4-1.3 m/s) MV E/E' MED 9.09 (<14) MV A Vmax 1.00 (0.4-1.3 m/s) MV E' lateral 0.128 (>0.1 m/s) E/A Ratio 0.9 MV E/E' LAT 6.87 (<14) MV E' Average 0.112 m/s MV E/E'(average) 7.83 Aortic Valve AoV Vmax 1.77 m/s LVOT Vmax 1.34 m/s AoV Peak Grad 12.6 mmHg LVOT Peak Grad 7.2 mmHg AoV Area (Vmax) 2.19 cm2 LVOT VTI 0.295 m AoV VTI 0.352 m LVOT Mean Grad 3.8 mmHg AoV Mean Nate. 1.21 m/s LVOT SV 85.54 mL AoV Mean Grad 6.6 mmHg LVOT Diam s 1.90 cm AoV Area (VTI) 2.43 cm2 AV Regurg Peak Gr. 12.57 mmHg Velocity Ratio 0.76 Mitral Valve MV DT 182 (160-240 msec) MV Vmax TIPS 1.02 m/s MV Mean Grad 2.7 (<2mmHg) MV VTI 0.195 m Pulmonary Valve PV Vmax 1.18 (0.5-1.5 m/s) RVOT Vmax 0.89 m/s PV Peak Grad 5.6 mmHg RVOT Peak Gr. 3.2 mmHg PV Mean Nate 0.82 m/s RVOT VTI 0.203 m PV Mean Grad 3.0 mmHg RVOT Mean Gr. 1.8 mmHg Tricuspid Valve TV S' 0.09 m/s
== END 2024-11-02 15:24 ==
LOC: DI 15:07
PROVIDERS: PCP Nurse Practitioner Family; Visit Provider Internal Medicine Cardiovascular Disease
DX: R60.0 Localized edema (principal)
CPT/HCPCS: 93306

== ENCOUNTER 2024-11-03 01:28 | Outpatient (CLI) | payer OTHER, SELFPAY ==
--- NOTE | 2024-11-03 | DI.NM_ITS ---
APPROVED REPORT Exam: Exercise Treadmill Patient Location: Out-Patient Room/Bed: Stress Nurse: Vrena Vega RN Ordering Provider:JOVANI LEVINE, Contact Number: [phone] BMI: 44.71 Baseline Rhythm: Sinus Rhythm Indications: Exertional chest pain, Medical History Medical History: Chest pain, anxiety, asthma, HTN Cardiac Medications: Albuterol sulfate, fluoxetine, lasix, losartan, magnesium oxide, pantoprazole, metorpolol succinate Allergies: Penicillins Cardiac Risk Factors: Family hx, HTN, asthma Previous Cardiac Procedures: None Pretest Chest Pain Characteristics: None Exercise History: Indeterminate Physical Disabilities: None Lung Sounds: Clear to auscultation Heart Sounds: Regular Stress Test Details Test: Exercise stress testing was performed using a Rick protocol. Nuclear Acquisition: Rest Tc-99m/Stress Tc-99m 1 day Rest Isotope: Tc-99m Sestamibi. Dose: 10.0 Date: 11/03/2024 Injection Time: 1100 Stress Isotope: Tc-99m Sestamibi. Dose: 28.5 Date: 11/03/2024 Injection Time: 1255 HR Resting HR Supine: 84 bpm Max Heart Rate (APMHR): 173 bpm Resting HR Standin bpm Target HR (85% APMHR): 147 bpm Max HR Achieved: 158 bpm % of APMHR: 91 Recovery HR: 94 bpm HR response to stress: Normal HR response to stress BP Resting BP Supine: 120/80 mmHg Resting BP Standin/88 mmHg Max BP: 160/88 mmHg Recovery BP: 120/78 mmHg BP response to stress: Normal blood pressure response to stress. ECG Resting ECG: Sinus Rhythm Ectopy: None Stress ECG: Sinus Tachycardia ST Change: No significant ST segment changes noted Arrhythmia: None Recovery ECG: Sinus Rhythm Recovery ST Change: No significant ST segment changes noted Recovery Arrhythmia: None Clinical Reason for Termination: Mod SOB, patient requested to stop Stress Symptoms: Mod SOB Exercise duration: 03 min15 sec Highest Stage Reached: Stage 2: 2.5 mph at 12% grade. Exercise capacity: 4.93 METs Angina Score: None Rate Pressure Product: [id number] Stress ECG Conclusion 1. Resting EKG showed low voltage but was otherwise normal 2. Patient exercised on the Rick protocol and completed workload of 4.7 METS 3. Normal heart rate and blood pressure response to exercise. The patient achieved 91% of maximal predicted heart rate for age 4. There was no electrocardiographic evidence of myocardial ischemia 5. There were no significant dysrhythmias 6. See MPI report Stress Test Summary STAGE Time (mins) Speed (mph) Grade (%) HR BP SpO2 SYMPTOMS METS Supine 84 120/80 98% Standing 78 130/88 1 3 1.7 10 154 160/90 94% 4.5 2 6 2.5 12 158 7 1 min recovery 133 160/88 97% 3 min recovery 102 140/86 99% 6 min recovery 94 120/78 98% Patietn requested to stop treadmill r/t mod SOB. All symptoms resolved by test end. Patient proceeded to imaging ambulatory in no apparent distress. MPI Conclusion Myocardial perfusion is normal. There is no ischemia or evidence of prior infarction Ejection fraction is 65% with normal wall motion
== END 2024-11-03 01:48 ==
LOC: DI 01:28
PROVIDERS: PCP Nurse Practitioner Family; Visit Provider Family Medicine
DX: R07.9 Chest pain, unspecified (principal)
CPT/HCPCS: 78452; 93017

== ENCOUNTER → 2025-02-23 18:23 | Outpatient (CLI) | payer OTHER, SELFPAY ==
--- NOTE | 2025-02-23 18:46 | DI.RAD_ITS ---
Exam(s) XR CHEST 2V PA LATERAL EXAM: XR CHEST 2V PA LATERAL CLINICAL HISTORY: Acute cough ICD-10: R05.1. TECHNIQUE: 2D digital imaging was performed. COMPARISON: CR XR CHEST 2V PA LATERAL from 10/20/2024 FINDINGS: 2 views: Heart size is normal. The mediastinum is not widened. Lungs are clear. No infiltrates nor pleural effusions. IMPRESSION: No acute pulmonary findings. DATA REPOSITORY: RADIATION DOSE DELIVERED:
--- NOTE | 2025-02-23 19:53 | DI.VRAD_ITS ---
PROCEDURE INFORMATION: Exam: XR Chest Exam date and time: 02/23/2025 6:38 PM Age: 49 years old Clinical indication: Acute cough TECHNIQUE: Imaging protocol: Radiologic exam of the chest. Views: 2 views. Total images: 2 COMPARISON: CR XR CHEST 2V PA LATERAL 10/20/2024 4:54 PM FINDINGS: Lungs: Lungs are clear without consolidation. Pulmonary mely: Unremarkable. Pleural spaces: No pleural effusion or pneumothorax. Heart/Mediastinum: Unremarkable. Bones/joints: No acute finding. Intraperitoneal space: Visualized upper abdomen unremarkable. IMPRESSION: No acute findings. Dictated and Authenticated by: Tejinder Urbano MD. Orderin Moises Villanueva MD
== END ==
LOC: DI 18:24
PROVIDERS: PCP Nurse Practitioner Family; Visit Provider Physician Assistant Medical
DX: R05.1 Acute cough (principal)
CPT/HCPCS: 71046

== ENCOUNTER 2025-03-02 11:00 | Outpatient (REF) | payer OTHER, SELFPAY | END 2025-03-02 11:01 | disposition home or self-care (01) | LOC: LBN 11:00 | PROVIDERS: PCP Nurse Practitioner Family; Visit Provider Physician Assistant Medical | DX: J02.9 Acute pharyngitis, unspecified (principal) | CPT/HCPCS: 87070 ==

== ENCOUNTER → 2025-03-10 11:28 | Outpatient (CLI) | payer OTHER, SELFPAY ==
--- NOTE | 2025-03-10 10:55 | DI.RAD_ITS ---
Exam(s) XR CHEST 2V PA LATERAL EXAM: XR CHEST 2V PA LATERAL CLINICAL HISTORY: eval pna R05.9 COUGH TECHNIQUE: 2D digital imaging was performed of the chest. Two images were obtained. PA and lateral views were obtained. COMPARISON: CR XR CHEST 2V PA LATERAL from 10/20/2024 CR,XR XR CHEST 2V PA LATERAL from 02/23/2025 FINDINGS: MEDIASTINUM: Normal. HEART: Normal. PULMONARY VASCULATURE: Normal. LUNGS: Clear. PLEURAL SPACE: No pleural effusion or pneumothorax. BONE:Within normal limits for the patient's age. OTHER FINDINGS:Normal. IMPRESSION: No acute pulmonary findings. DATA REPOSITORY: RADIATION DOSE DELIVERED:
== END ==
LOC: DI 11:29
PROVIDERS: PCP Nurse Practitioner Family; Visit Provider Nurse Practitioner Family
DX: R05.9 Cough, unspecified (principal)
CPT/HCPCS: 71046